=== PATIENT | female | born 1995 | race Two or more races ===

== ENCOUNTER 2021-12-23 12:11 | Emergency (ER) | payer OTHER ==
[~2021-12-23] VITALS: Ht 172.7 cm; Wt 88.5 kg
[2021-12-23] MEDS ORDERED: ASPirin 81 mg TAB PO ONE (12:45)
[2021-12-23] MEDS ORDERED: ONDANSETRON ODT 4 MG TAB PO ONE (12:45)
[2021-12-23] MEDS ORDERED: ASPirin 81 mg TAB ONE (13:06)
[2021-12-23] MEDS ORDERED: PROMETHAZINE HCL 25 MG/ML 1ML IV ONE (13:45)
[2021-12-23] MEDS ORDERED: MORPHINE SULFATE 4 MG/ML SYR/VIAL IV ONE (13:45)
[2021-12-23] MEDS ORDERED: LORazepam 2MG/ML-1ML VIAL IV ONE (14:00)
[2021-12-23 14:16] LABS: Basophils # (auto) 0.1 10 ^3/uL (0-0.2); Basophils % (auto) 0.6 % (0.0-2.0); Eosinophils # (auto) 0.2 10 ^3/uL (0-0.8); Eosinophils % (auto) 1.5 % (0.0-7.0); Hematocrit 41.8 % (36.0-46.0); Hemoglobin 14.2 g/dL (12.2-16.2); Lymphocytes # (auto) 1.6 10 ^3/uL (0.4-5.4); Lymphocytes % (auto) 10.7 % (10.0-50.0); Mean Corpuscular Hemoglobin 26.7 pg (28.0-32.0); Mean Corpuscular Hgb Conc. 33.9 g/dL (32.0-36.0); Mean Corpuscular Volume 78.9 fL (80.0-100.0); Monocytes # (auto) 0.5 10 ^3/uL (0-1.3); Monocytes % (auto) 3.5 % (0.0-12.0); Neutrophils # (auto) 12.8 10 ^3/uL (1.6-8.6); Neutrophils % (auto) 83.7 % (37.0-80.0); Nucleated Red Blood Cells % 0.1 %; Red Cell Distribution Width 14.2 % (11.8-14.3); White Blood Cell 15.3 10^3/uL (4.4-10.8)
[2021-12-23 14:21] VITALS: BP 129/86
[2021-12-23 14:25] LABS: Albumin 3.8 g/dL (3.4-5.0); Calcium 8.9 mg/dL (8.5-10.1); Potassium 3.7 mmol/L (3.5-5.1)
[2021-12-23 14:27] LABS: BUN/Creatinine Ratio 9.9
[2021-12-23 14:30] LABS: Bilirubin, Total 0.3 mg/dL (0.2-1.0); Total Protein 7.9 g/dL (6.4-8.2)
== END 2021-12-23 15:00 | disposition short-term general hospital (02) ==
LOC: ER 12:11
DX: I60.9 Nontraumatic subarachnoid hemorrhage, unspecified (principal); R07.89 Other chest pain
CPT/HCPCS: 36415; 70450; 71045; 80053; 84484; 85025; 93005; 96374; 96375; 99291; J2060; J2270; J2550; Q0162